=== PATIENT | male | born 1995 | race Two or more races ===

== ENCOUNTER 2018-04-22 10:47 | Emergency (ER) | payer OTHER ==
[~2018-04-22] VITALS: Ht 170.2 cm; Wt 88.6 kg
[2018-04-22 12:00] VITALS: BP 109/72
[2018-04-22] MEDS ORDERED: dexameTHASONE 20 MG/5 ML VIAL (J1100) IV ONE (12:15)
[2018-04-22] MEDS ORDERED: EPIP0.3I2 IM (14:38)
[2018-04-22] MEDS ORDERED: PRED20TA PO (14:38)
== END 2018-04-22 14:49 | disposition home or self-care (01) ==
LOC: M ED 10:47
DX: R22.0 Localized swelling, mass and lump, head (principal); R06.02 Shortness of breath; Z91.010 Allergy to peanuts
CPT/HCPCS: 93041; 96374; 99284; J1100